=== PATIENT | female | born 1985 | race Caucasian/White ===

== ENCOUNTER 2017-11-03 09:12 | Outpatient (CLI) | payer MEDICAID | END 2017-11-03 09:13 | disposition home or self-care (01) | LOC: BICULT 09:12 | PROVIDERS: ATTEND Nurse Practitioner | DX: N93.9 Abnormal uterine and vaginal bleeding, unspecified (principal) | CPT/HCPCS: 76856 ==

== ENCOUNTER 2019-05-15 07:52 | Day surgery (SDC) | payer OTHER ==
[2019-05-14 11:52] VITALS: BMI 26.2
[2019-05-15 08:03] LABS: #Basophils 0.1 thou/uL (0.0-0.2); #Eosinphils 0.3 thou/uL (0.0-0.7); #Lymphocytes 1.4 thou/uL (1.20-3.40); #Monocytes 0.5 thou/uL (0.11-0.59); #Neutrophils 2.9 thou/uL (1.40-6.50); %Eosinophils 6.8 % (0.0-10.0); %Lymphocytes 26.3 % (21.0-51.0); %Monocytes 8.8 % (0.0-10.0); %Neutrophils 57.1 % (42.0-75.0); Hemoglobin 8.7 g/dL (12.0-16.0); Mean Corpuscular HGB CONC 32.8 g/dL (32.0-36.0); Mean Corpuscular Hemoglobin 30.9 pg (27.0-31.0); Mean Corpuscular Volume 94.1 fL (78.0-98.0); Mean Platelet Volume 6.7 fL (7.4-10.4); Platelet Count 138 thou/uL (130-400); RBC Distribution Width 13.9 % (11.5-14.5); Red Blood Cell (RBC) Count 2.83 mill/uL (4.20-5.40); White Blood Cell (WBC) Count 5.1 thou/uL (4.8-10.8)
[2019-05-15] MEDS ORDERED: Lidocaine 1% PF 5 ML VIAL ONE (08:05)
[2019-05-15] MEDS ORDERED: Sodium Bicarbonate 2.5 MEQ/5 ML VIAL ONE (08:05)
[2019-05-15 08:10] LABS: INR-International Normal Ratio 1.4; PTT 39.3 SEC (22.9-36.1)
[2019-05-15 08:17] LABS: BHCG - Serum Negative (NEGATIVE); Pregs Control Background? CLEAR/WHITE (CLR/WHITE); Pregs Control Bar Appear? YES (CONTROL BAR)
[2019-05-15 09:08] VITALS: BP 99/57; TEMP 98.1
--- NOTE | 2019-05-15 09:30 | ULT ---
Exam: Limited abdominal ultrasound: Limited abdomen was performed with attention to the quadrants to evaluate for potential of ascitic fl uid for possible paracentesis. Very limited exam of the 4 quadrants demonstrates no evidence for any free intraperitoneal fluid or a scites. Liver echotexture is very coarse but incompletely seen. Spleen also appears to be upper range of normal size at least but again was incompletely seen since this was a scan to evaluate for f luid. IMPRESSION: No evidence for any significant free intraperitoneal fluid or ascites. The paracentesis scheduled for today cannot be performed since there is no fluid.
== END 2019-05-15 08:58 | disposition home or self-care (01) ==
LOC: ULT 07:52
PROVIDERS: ATTEND Physician Assistant Medical
DX: K70.30 Alcoholic cirrhosis of liver without ascites (principal); D50.9 Iron deficiency anemia, unspecified; K21.9 Gastro-esophageal reflux disease without esophagitis; Z79.899 Other long term (current) drug therapy; Z88.0 Allergy status to penicillin; Z88.6 Allergy status to analgesic agent
CPT/HCPCS: 36415; 76705; 84703; 85025; 85610; 85730; J2001

== ENCOUNTER 2019-05-16 18:46 | Emergency (ER) | payer OTHER ==
[2019-05-16 19:24] LABS: #Eosinphils 0.3 thou/uL (0.0-0.7); #Lymphocytes 1.4 thou/uL (1.20-3.40); #Monocytes 0.7 thou/uL (0.11-0.59); #Neutrophils 3.1 thou/uL (1.40-6.50); %Basophils 0.2 % (0.0-1.0); %Eosinophils 6.3 % (0.0-10.0); %Lymphocytes 26.1 % (21.0-51.0); %Neutrophils 55.4 % (42.0-75.0); Hemoglobin 8.6 g/dL (12.0-16.0); Mean Corpuscular HGB CONC 32.4 g/dL (32.0-36.0); Mean Corpuscular Hemoglobin 30.2 pg (27.0-31.0); Mean Corpuscular Volume 93.3 fL (78.0-98.0); Mean Platelet Volume 6.7 fL (7.4-10.4); Platelet Count 141 thou/uL (130-400); RBC Distribution Width 13.7 % (11.5-14.5); Red Blood Cell (RBC) Count 2.85 mill/uL (4.20-5.40); White Blood Cell (WBC) Count 5.5 thou/uL (4.8-10.8)
--- NOTE | 2019-05-16 19:40 | RAD ---
PA AND LATERAL CHEST: 05/16/19 HISTORY: Dyspnea and pleural effusion. Heart size and mediastinum are within normal limits. The lungs are clear of any confluent infiltrativ e process. Slightly increased perihilar lung markings are seen. IMPRESSION: Slightly increased perihilar lung markings. Cannot exclude an early viral pneumonitis. This may just be largely technique related. POS: [facility]
[2019-05-16 19:44] LABS: ALT (SGPT) 15 U/L (8-55); AST (SGOT) 40 U/L (5-34); Albumin 3.6 g/dL (3.5-5.0); Alkaline Phosphatase 112 U/L (40-110); Anion Gap 11 mmol/L (10-20); BUN (Urea Nitrogen) 12 mg/dL (7.0-18.7); Bilirubin, Total 2.3 mg/dL (0.2-1.2); CK (CPK) 50 U/L (29-168); Calc. Creatinine Clearance 0 mL/min (70-130); Carbon Dioxide 26 mmol/L (22-29); Chloride 104 mmol/L (98-107); Estimated GFR-MDRD 59; Globulin 3.5 g/dL (2.4-3.5); Glucose 115 mg/dL (70-105); Potassium 3.8 mmol/L (3.5-5.1); Protein, Total 7.1 g/dL (6.0-8.3); Sodium 137 mmol/L (136-145)
[2019-05-16 23:22] LABS: BHCG - Serum Negative (NEGATIVE); Pregs Control Background? CLEAR/WHITE (CLR/WHITE); Pregs Control Bar Appear? YES (CONTROL BAR)
--- NOTE | 2019-05-16 23:50 | CT ---
CT angiogram of chest performed with intravenous contrast enhancement with 3-D reconstructions HISTORY: Shortness of breath. Left pleural effusion. COMPARISON: Chest x-ray done today. FINDINGS: The lungs are clear of any infiltrative process. There are no pleural effusions identified. No pulmonary nodules. There are small but prominent and numerous mediastinal and hilar lymph nodes, these could be reactive in nature. No significant axillary adenopathy. The thoracic aorta is normal in caliber. There is fair pulmonary artery opacification. There is no CT evidence for pulmonary embolus. A small hiatal hernia is identified. The liver appears prominent but is incompletely visualized. IMPRESSION: No CT evidence for pulmonary embolus. No focal infiltrative process. Mild mediastinal and hilar adenopathy may be reactive in nature.
== END 2019-05-17 00:13 | disposition home or self-care (01) ==
LOC: ERS 18:46
DX: R06.02 Shortness of breath (principal); F41.9 Anxiety disorder, unspecified; Z79.899 Other long term (current) drug therapy
CPT/HCPCS: 36415; 71046; 71275; 80053; 82550; 84484; 84703; 85025; 93005

== ENCOUNTER → 2019-05-16 | Day surgery (SDC) | payer OTHER ==
--- NOTE | 2019-05-16 11:37 | ULT ---
HEPATIC DUPLEX ULTRASOUND WITH COLOR AND SPECTRAL DOPPLER IMAGING: Date: 05/16/2019 HISTORY: Cirrhosis. FINDINGS: Very heterogeneous coarse liver echogenicity without definitive masses. Common bile duct 0.2 cm. Mini mal gallbladder wall thickening with no evidence for gallstones or sludge or positive Moncada's sign. Visualized pancreas is unremarkable, as is the visualized right kidney. Evidence for splenomegaly up to 12.6 cm. Evidence for left pleural effusion. Hepatic venous and portal venous flow is antegrade. IMPRESSION: 1. Very heterogeneous liver echogenicity throughout. Evidence for history of alcoholic cirrhosis. 2. Minimally thickened gallbladder wall without gallstones or acute cholecystitis. 3. Antegrade hepatic and portal venous flow. POS: [facility]
== END ==
LOC: ULT 09:28
PROVIDERS: ATTEND Physician Assistant Medical
DX: K70.31 Alcoholic cirrhosis of liver with ascites (principal); D50.9 Iron deficiency anemia, unspecified; I87.8 Other specified disorders of veins; K31.89 Other diseases of stomach and duodenum; K82.8 Other specified diseases of gallbladder; Z88.0 Allergy status to penicillin; Z88.6 Allergy status to analgesic agent
CPT/HCPCS: 76705

== ENCOUNTER 2019-05-24 11:57 | Outpatient (CLI) | payer OTHER ==
--- NOTE | 2019-05-24 13:52 | RAD ---
PA AND LATERAL VIEWS CHEST: 05/24/19 HISTORY: Dyspnea on exertion. FINDINGS: Comparison made with exam of 05/16/19. The heart size is normal. The lungs are expanded without lobar consolidation, pneumothoraces, jeanna p ulmonary edema or pleural effusion. IMPRESSION: No radiographic evidence of acute cardiopulmonary process. POS: [facility]
== END 2019-05-24 11:58 | disposition home or self-care (01) ==
LOC: RAD 11:57
PROVIDERS: ATTEND Internal Medicine Cardiovascular Disease
DX: R06.09 Other forms of dyspnea (principal)
CPT/HCPCS: 71046

== ENCOUNTER 2019-09-06 05:29 | Outpatient (CLI) | payer OTHER ==
[2019-09-06 09:52] LABS: #Basophils 0.1 thou/uL (0.0-0.2); #Eosinphils 0.6 thou/uL (0.0-0.7); #Lymphocytes 1.4 thou/uL (1.20-3.40); #Monocytes 0.6 thou/uL (0.11-0.59); #Neutrophils 2.6 thou/uL (1.40-6.50); %Basophils 1.6 % (0.0-1.0); %Eosinophils 10.5 % (0.0-10.0); %Lymphocytes 26.3 % (21.0-51.0); %Monocytes 11.5 % (0.0-10.0); %Neutrophils 50.1 % (42.0-75.0); Mean Corpuscular HGB CONC 31.8 g/dL (32.0-36.0); Mean Corpuscular Hemoglobin 26.5 pg (27.0-31.0); Mean Corpuscular Volume 83.5 fL (78.0-98.0); Mean Platelet Volume 8.3 fL (7.4-10.4); Platelet Count 164 thou/uL (130-400); RBC Distribution Width 17.6 % (11.5-14.5); Red Blood Cell (RBC) Count 3.79 mill/uL (4.20-5.40); White Blood Cell (WBC) Count 5.3 thou/uL (4.8-10.8)
[2019-09-06 10:11] LABS: ALT (SGPT) 24 U/L (8-55); AST (SGOT) 43 U/L (5-34); Albumin 3.7 g/dL (3.5-5.0); Alkaline Phosphatase 110 U/L (40-110); Anion Gap 13 mmol/L (10-20); BUN (Urea Nitrogen) 14 mg/dL (7.0-18.7); Bilirubin, Total 1.2 mg/dL (0.2-1.2); Calc. Creatinine Clearance 0 mL/min (70-130); Calcium 9.3 mg/dL (7.8-10.44); Carbon Dioxide 23 mmol/L (22-29); Chloride 105 mmol/L (98-107); Estimated GFR-MDRD 59; Globulin 3.2 g/dL (2.4-3.5); Glucose 100 mg/dL (70-105); Potassium 4.1 mmol/L (3.5-5.1); Protein, Total 6.9 g/dL (6.0-8.3); Sodium 137 mmol/L (136-145)
[2019-09-07 12:16] LABS: SARS-CoV-2 MS2 Positive; SARS-CoV-2 N Gene Negative; SARS-CoV-2 S Gene Negative; SARS-CoV-2 orf1ab Negative
== END 2019-09-06 05:30 | disposition home or self-care (01) ==
LOC: LABBT 05:29
PROVIDERS: ATTEND Internal Medicine Cardiovascular Disease
DX: Z01.812 Encounter for preprocedural laboratory examination (principal); Z11.59 Encounter for screening for other viral diseases
CPT/HCPCS: 80053; 85025; 87635; U0003

== ENCOUNTER → 2019-09-11 | Day surgery (SDC) | payer OTHER ==
[2019-09-05 12:11] VITALS: BMI 24.7
[~2019-09-11] MED LIST: Iopamidol 370 76% 100 ML VIAL ONE
== END ==
LOC: CCL 05:53
PROVIDERS: ATTEND Internal Medicine Cardiovascular Disease
PROC: B2111ZZ Fluoroscopy of Multiple Coronary Arteries using Low Osmolar Contrast (ICD-10-PCS; principal; 2019-09-11)
PROC: 4A023N7 Measurement of Cardiac Sampling and Pressure, Left Heart, Percutaneous Approach (ICD-10-PCS; principal; 2019-09-11)
DX: I42.9 Cardiomyopathy, unspecified (principal); Z79.899 Other long term (current) drug therapy; Z88.0 Allergy status to penicillin; Z88.6 Allergy status to analgesic agent
CPT/HCPCS: 76942; 93458; J1644; Q9967

== ENCOUNTER 2019-09-23 09:27 | Outpatient (CLI) | payer OTHER ==
--- NOTE | 2019-09-23 10:17 | ULT ---
Hepatic ultrasound with vascular and color and spectral Doppler imaging: HISTORY: Alcoholic cirrhosis COMPARISON: 05/16/2019 Heterogeneous coarse liver echogenicity which certainly could be consistent with history. No evidence of gallstones, wall thickening, edema, pericholecystic fluid. Common bile duct within normal limits. Spleen is within normal limits. Vascular duplex with color and spectral Doppler imaging Hepatic venous and portal venous flow is antegrade. IMPRESSION: Very heterogeneous coarse liver echogenicity which certainly could be consistent with known history. Antegrade hepatic and portal venous flow.
== END 2019-09-23 09:28 | disposition home or self-care (01) ==
LOC: BICULT 09:27
PROVIDERS: ATTEND Internal Medicine
DX: K70.31 Alcoholic cirrhosis of liver with ascites (principal); R60.0 Localized edema; I85.00 Esophageal varices without bleeding; K72.90 Hepatic failure, unspecified without coma; D50.9 Iron deficiency anemia, unspecified
CPT/HCPCS: 76705

== ENCOUNTER 2021-05-05 12:01 | Outpatient (CLI) | payer OTHER ==
[2021-05-05 22:06] LABS: SARS-CoV-2 PCR by NAA Not Detected (NotDetected)
== END 2021-05-05 12:02 | disposition home or self-care (01) ==
LOC: LABBT 12:01
PROVIDERS: ATTEND Internal Medicine
DX: K70.30 Alcoholic cirrhosis of liver without ascites (principal); R10.13 Epigastric pain; R60.0 Localized edema; E23.6 Other disorders of pituitary gland; Z20.822 Contact with and (suspected) exposure to COVID-19
CPT/HCPCS: U0003; U0005

== ENCOUNTER 2021-05-10 06:47 | Day surgery (SDC) | payer OTHER ==
[2021-05-05 10:38] VITALS: BMI 34.5
[2021-05-10] MEDS ORDERED: PROPOFOL 200 MG/20 ML VIAL ONE (09:12)
== END 2021-05-10 10:27 | disposition home or self-care (01) ==
LOC: SDC 06:47
PROVIDERS: ATTEND Internal Medicine
PROC: 0DJ08ZZ Inspection of Upper Intestinal Tract, Via Natural or Artificial Opening Endoscopic (ICD-10-PCS; principal; 2021-05-10)
DX: R10.13 Epigastric pain (principal); R10.11 Right upper quadrant pain; K70.30 Alcoholic cirrhosis of liver without ascites; K21.9 Gastro-esophageal reflux disease without esophagitis; F10.11 Alcohol abuse, in remission; R60.0 Localized edema; E66.3 Overweight; Z68.35 Body mass index [BMI] 35.0-35.9, adult; Z87.891 Personal history of nicotine dependence; Z79.899 Other long term (current) drug therapy; Z88.0 Allergy status to penicillin; Z88.6 Allergy status to analgesic agent

== ENCOUNTER 2021-11-17 06:57 | Outpatient (CLI) | payer OTHER | END 2021-11-17 06:58 | disposition home or self-care (01) | LOC: BICULT 06:57 | PROVIDERS: ATTEND Internal Medicine | DX: I85.00 Esophageal varices without bleeding (principal); K72.90 Hepatic failure, unspecified without coma; K70.31 Alcoholic cirrhosis of liver with ascites; I42.5 Other restrictive cardiomyopathy; E23.6 Other disorders of pituitary gland; R60.0 Localized edema | CPT/HCPCS: 76705 ==

== ENCOUNTER 2022-01-29 16:31 | Emergency (ER) | payer OTHER ==
[2022-01-29] MEDS ORDERED: traMADol HCl 50 MG TAB ONE (17:47)
== END 2022-01-29 18:34 | disposition home or self-care (01) ==
LOC: ERS 16:31
DX: R07.89 Other chest pain (principal); I50.9 Heart failure, unspecified
CPT/HCPCS: 71046; 93005

== ENCOUNTER 2022-04-22 12:56 | Outpatient (CLI) | payer OTHER ==
[2022-04-22] MEDS ORDERED: Iopamidol 370 76% 100 ML VIAL ONE (13:57)
[2022-04-22] MEDS ORDERED: Iopamidol-370 76% 500 ML 1 ML ONE (13:57)
== END 2022-04-22 12:57 | disposition home or self-care (01) ==
LOC: BICCT 12:56
PROVIDERS: ATTEND Internal Medicine
DX: K76.82 Hepatic encephalopathy (principal); I85.00 Esophageal varices without bleeding; K70.31 Alcoholic cirrhosis of liver with ascites; I42.5 Other restrictive cardiomyopathy; K21.9 Gastro-esophageal reflux disease without esophagitis; R60.0 Localized edema; K76.6 Portal hypertension; R16.1 Splenomegaly, not elsewhere classified; I86.8 Varicose veins of other specified sites
CPT/HCPCS: 74170; 82565; Q9967

== ENCOUNTER 2022-11-02 13:41 | Emergency (ER) | payer OTHER | END 2022-11-02 15:41 | disposition home or self-care (01) | LOC: ERS 13:41 | DX: M79.641 Pain in right hand (principal); I50.9 Heart failure, unspecified ==

== ENCOUNTER 2023-01-09 16:56 | Emergency (ER) | payer OTHER, SELFPAY ==
[2023-01-09 17:53] LABS: SARS-CoV-2 NAA Rapid Test Not Detected (NotDetected)
== END 2023-01-09 19:38 | disposition home or self-care (01) ==
LOC: ERS 16:56
DX: B34.9 Viral infection, unspecified (principal); I50.9 Heart failure, unspecified; Z79.899 Other long term (current) drug therapy; Z20.822 Contact with and (suspected) exposure to COVID-19
CPT/HCPCS: 87081; 87430; 99283

== ENCOUNTER 2023-03-31 12:51 | Emergency (ER) | payer SELFPAY ==
[2023-03-31 14:32] LABS: Pregnancy Test - Urine (BHCG) Negative (Negative); Pregu Control Background? CLEAR/WHITE (CLR/WHITE); Pregu Control Bar Appear? YES (CONTROL BAR); Specific Gravity 1.018 (1.002-1.036)
== END 2023-03-31 15:32 | disposition home or self-care (01) ==
LOC: ERS 12:51
DX: Z71.1 Person with feared health complaint in whom no diagnosis is made (principal); Z87.891 Personal history of nicotine dependence
CPT/HCPCS: 81025; 99283

== ENCOUNTER 2023-04-09 20:29 | Emergency (ER) | payer OTHER, SELFPAY | END 2023-04-09 21:52 | disposition home or self-care (01) | LOC: ERS 20:29 | DX: R50.9 Fever, unspecified (principal); R11.0 Nausea; K74.60 Unspecified cirrhosis of liver; Z55.6 Problems related to health literacy; Z87.891 Personal history of nicotine dependence | CPT/HCPCS: 99282 ==

== ENCOUNTER 2023-05-10 09:47 | Emergency (ER) | payer OTHER, SELFPAY ==
[2023-05-10] MEDS ORDERED: Acetaminophen 500 MG TAB ONE (11:08)
[2023-05-10 12:35] LABS: Influenza A by NAA Not Detected (NotDetected); Influenza B by NAA Not Detected (NotDetected); SARS-CoV-2 NAA Rapid Test Not Detected (NotDetected)
== END 2023-05-10 12:26 | disposition home or self-care (01) ==
LOC: ERS 09:47
DX: J02.9 Acute pharyngitis, unspecified (principal); Z55.6 Problems related to health literacy; Z87.891 Personal history of nicotine dependence
CPT/HCPCS: 87081; 87430; 99283

== ENCOUNTER 2023-05-12 09:18 | Emergency (ER) | payer OTHER | END 2023-05-12 11:54 | disposition home or self-care (01) | LOC: ERS 09:18 | DX: M25.571 Pain in right ankle and joints of right foot (principal); W10.9XXA Fall (on) (from) unspecified stairs and steps, initial encounter; Z75.3 Unavailability and inaccessibility of health-care facilities; Z87.891 Personal history of nicotine dependence ==

== ENCOUNTER 2024-03-04 14:16 | Emergency (ER) | payer OTHER ==
[2024-03-04 15:34] LABS: BHCG - Serum Negative (NEGATIVE); Pregs Control Background? CLEAR/WHITE (CLR/WHITE); Pregs Control Bar Appear? YES (CONTROL BAR)
[2024-03-04 15:38] LABS: #Basophils 0.03 10x3/uL (0.0-0.2); %Basophils 0.6 % (0.0-1.0); %Eosinophils 2.5 % (0.0-10.0); %Lymphocytes 19.5 % (21.0-51.0); %Monocytes 6.6 % (0.0-10.0); %Neutrophils 70.4 % (42.0-75.0); Hematocrit 40.5 % (36.0-47.0); Hemoglobin 13.7 g/dL (12.0-16.0); Mean Corpuscular HGB CONC 33.8 g/dL (32.0-36.0); Mean Corpuscular Hemoglobin 31.3 pg (27.0-31.0); Mean Corpuscular Volume 92.5 fL (78.0-98.0); Mean Platelet Volume 9.5 fL (7.4-10.4); Platelet Count 107 10x3/uL (130-400); RBC Distribution Width 12.8 % (11.5-14.5); Red Blood Cell (RBC) Count 4.38 mill/uL (4.20-5.40)
[2024-03-04 15:39] LABS: INR-International Normal Ratio 1.1; PTT 27.5 sec (22.9-36.1); Prothrombin Time 14.2 sec (12.0-14.7)
[2024-03-04 15:44] LABS: Troponin I Less than 0.010 ng/mL (< 0.028)
[2024-03-04 15:48] LABS: ALT (SGPT) 20 U/L (8-55); AST (SGOT) 28 U/L (5-34); Albumin 3.6 g/dL (3.5-5.0); Alkaline Phosphatase 102 U/L (40-110); Anion Gap 12 mmol/L (10-20); BUN (Urea Nitrogen) 9 mg/dL (7.0-18.7); Calc. Creatinine Clearance 0 mL/min (70-130); Calcium 9.1 mg/dL (7.8-10.44); Carbon Dioxide 23 mmol/L (22-29); Chloride 110 mmol/L (98-107); Estimated GFR 101; Globulin 3.7 g/dL (2.4-3.5); Glucose 107 mg/dL (70-105); Lipase 27 U/L (8-78); Potassium 4.4 mmol/L (3.5-5.1); Protein, Total 7.3 g/dL (6.0-8.3); Sodium 141 mmol/L (136-145)
[2024-03-04 16:04] LABS: Platelet Adequacy Comment Platelets Decreased; Tear Drops SLIGHT = 2-5 cells HPF (0-1)
[2024-03-04 16:22] LABS: Bacteria/HPF 1+ HPF (None Seen); Bilirubin Negative (Negative); Blood, Urine Negative (Negative); CAUTI Indications for Culture Dysuria,urgency,freq; Clarity Clear (Clear); Glucose, Urine (Dipstick) Normal (Negative); Ketone, Urine Negative (Negative); Leukocyte Negative Leu/uL (Negative); Nitrite Negative (Negative); Protein, Urine (Dipstick) Negative (Neg-Trace); RBC/HPF 0-3 HPF (0-3); Specific Gravity, Urine 1.026 (1.002-1.036); WBC/HPF 0-3 HPF (0-3); pH, Urine 6.5 (5.0-9.0)
[2024-03-04 16:23] LABS: Urine Culture Reflex No No
== END 2024-03-04 18:01 | disposition home or self-care (01) ==
LOC: ERS 14:16
DX: I50.9 Heart failure, unspecified (principal)
CPT/HCPCS: 36415; 71045; 80053; 81001; 83690; 83880; 84484; 84703; 85025; 85610; 85730; 93005

== ENCOUNTER 2024-10-23 12:51 | Emergency (ER) | payer OTHER | END 2024-10-23 14:08 | disposition home or self-care (01) | LOC: ERS 12:51 | DX: Z76.0 Encounter for issue of repeat prescription (principal); J06.9 Acute upper respiratory infection, unspecified; I48.91 Unspecified atrial fibrillation; Z87.891 Personal history of nicotine dependence | CPT/HCPCS: 87081; 87426; 87430; 99284 ==

== ENCOUNTER 2024-11-24 13:31 | Emergency (ER) | payer OTHER ==
[2024-11-24] MEDS ORDERED: Metoprolol Succinate XL 25 MG ER.TAB PO SCH (15:30)
== END 2024-11-24 16:21 | disposition home or self-care (01) ==
LOC: ERS 13:31
DX: I48.91 Unspecified atrial fibrillation (principal); Z76.0 Encounter for issue of repeat prescription; Z87.891 Personal history of nicotine dependence; Z79.899 Other long term (current) drug therapy
CPT/HCPCS: 93005; 99281

== ENCOUNTER 2025-01-04 11:59 | Emergency (ER) | payer OTHER ==
[2025-01-04] MEDS ORDERED: predniSONE 20 MG TAB ONE (12:33)
== END 2025-01-04 12:55 | disposition home or self-care (01) ==
LOC: ERS 11:59
DX: M54.6 Pain in thoracic spine (principal); I48.91 Unspecified atrial fibrillation; Z87.891 Personal history of nicotine dependence
CPT/HCPCS: 99283; J7512